=== PATIENT | female | born 1990 | race Caucasian/White ===

== ENCOUNTER 2018-06-28 20:23 | Emergency (ER) | payer BC, MEDICAID ==
[2014-06-27 16:39] VITALS: Wt 79.4 kg
[~2018-06-28 20:23] MED LIST: IBUP800T37 PO; LORITAB; PER PO; PNV11TAB
--- NOTE | 2018-06-28 20:28 | ER Report ---
History and Physical Time Seen By MD: 20:28 HPI/ROS CHIEF COMPLAINT: left elbow laceration HISTORY OF PRESENT ILLNESS: This is a 27 year old female. She was sitting on a glass coffee table, glass gave way and broke, fell with elbow into edge of glass, large laceration. Has normal range of motion with pain. Has some tingling in entire hand and wrist area. Allergies: Coded Allergies: No Known Allergies (Verified Allergy, Unknown, 06/28/18) Home Meds Active Scripts Cephalexin Monohydrate (CEPHALEXIN) 500 Mg Cap, 500 MG PO Q6H, #28 CAP 0 Refills Prov:JESUS BATES MD 06/28/18 Discontinued Reported Medications Oyc131/Iron Fumarate/Fa/Dss ( 19 TABLET) 1 Each Tablet 06/27/14 Discontinued Scripts Oxycodone/Acetaminophen (OXYCODONE/ACETAMINOPHEN 5MG/325 MG) 1 Tab Tab, 1-2 TAB PO Q4H PRN for PAIN, #30 TAB 0 Refills Prov:TOM CISSE MD 06/29/14 Ibuprofen (IBUPROFEN) 800 Mg Tab, 800 MG PO Q8H, #30 TAB 0 Refills Prov:TOM CISSE MD 06/29/14 Reviewed Nurses Notes: Yes Hx Smoking: Yes Smoking Status: Former Smoker Exposure to Second Hand Smoke?: Yes Hx Substance Use Disorder: No Hx Alcohol Use: No Constitutional Vital Sign - Last 24 Hours 06/28/18 06/28/18 20:27 22:05 Temp 98.1 Pulse 53 56 Resp 20 14 B/P (MAP) 99/50 95/59 (71) Pulse Ox 98 96 O2 Delivery Room Air Room Air l Intake and Output 06/28/18 06/28/18 06/29/18 15:00 23:00 07:00 Intake Total 100 ml Balance 100 ml Physical Exam General: Alert, mild distress due to injury and pain. Skin: about 7 cm laceration elbow, from olectranon, runs posteriorly/proximally and laterally. Into subcutaneous tissue. Partial tear into the triceps muscle where it inserts onto the olecranon. Does not seem to go into the joint itself. No vascular injury is noted. No obvious nerve injury as well. Musculoskeletal: Good passive and active range of motion, although with pain. Resisted flexion and extension of the elbow are normal. Good rotation of the forearm. Normal motor of the wrist, hand and fingers. Neuro: Paresthesias in hand, wrist and forearm, but no numbness. Cardiovascular: Normal radial pulses and capillary refill. Medical Decision Making EKG/Imaging Imaging ELBOW 3 VIEW LEFT HISTORY: elbow laceration COMPARISON: None FINDINGS: AP lateral and oblique views were obtained. The proximal radius is unremarkable. The proximal ulna is unremarkable. The distal humerus is unremarkable. There is gas present within the elbow joint capsule. IMPRESSION: Gas present within the joint space of the elbow. There is no evidence of acute bony abnormality. Report Dictated By: Sam Chester at 06/28/2018 9:02 PM ED Course/Re-evaluation Clinical Indication for ER IV: IV Access ED Course Large laceration going deep in elbow, but appears to miss the ulnar nerve area. Local numbing with 1% lidocaine and 0.5% bupivacaine to get a better look. No foreign material seen. IV start and Ancef 1g IV given. Imaging obtained, question of gas in joint. Discussed with Dr. Davis, who looked at the images. We discussed options, and decided that I would repair in the ER and have her see Dr. Davis tomorrow in the office for follow-up and further interventions as needed. Discussed doing a methylene blue joint injection, but did not think it would change our current plan for management. Procedure: Laceration Repair Verbal consent from patient after discussing repair options, risks and benefits. Wound cleaned extensively with Hibiclense and Saline, with copious irrigation. Anesthesia: Repeated local 1% lidocaine with epinephrine and 0.5% bupivacaine. Location: left elbow as noted.. Length: about 7 cm. Character: Deep into subcutaneous and partially into muscle tissue. No tendon injury was identified. Normal motor including resistance testing. Wound repair: 8 internal multi-layer 4-0 Vicryl, then interrupted 4-0 Ethilon on the exterior closure. The wound repair was complex and performed by myself. Wound care instructions discussed. Sutures need to be removed in 7-10 days. Tetanus booster given. Cephalexin 500mg four times a day for 7 days. Decision to Disposition Date: Jun 28, 2018 Decision to Disposition Time: 23:06 Depart Departure Latest Vital Signs Vital Signs Date Time Temp Pulse Resp B/P (MAP) Pulse Ox O2 Delivery O2 Flow Rate FiO2 06/28/18 22:05 56 14 95/59 (71) 96 Room Air 06/28/18 20:27 98.1 Impression: Primary Impression: Laceration of elbow Condition: Improved Disposition: HOME OR SELF-CARE New Scripts Cephalexin Monohydrate (CEPHALEXIN) 500 Mg Cap 500 MG PO Q6H, #28 CAP 0 Refills Prov: JESUS BATES MD 06/28/18 Patient Instructions: Laceration (ED) Additional Instructions: Wound Care: Leave the dressing in place until you see orthopedic surgery tomorrow. General wound care includes the following, wash the wound once a day with soap and water. Dry the wound and apply a small amount of antibiotic ointment with a clean dressing. If the dressing becomes wet or dirty, repeat cleaning and dressing as above. No soaking the wound; no swimming. Stitches need to be removed in 7 days. Pain Control: Use Tylenol or ibuprofen for pain. Using and ice pack can help reduce swelling. Antibiotic: Cephalexin 500mg 4 times a day for 7 days. Call [facility] in the morning, Dr. Davis plans to see you in the office for re-evaluation. Nothing to eat or drink after midnight tonight in case he will need to perform further repair or surgery. Problem Qualifiers Primary Impression: Laceration of elbow Encounter type: initial encounter Laterality: left Qualified Codes: S51.012A - Laceration without foreign body of left elbow, initial encounter JESUS BATES MD Jun 28, 2018 20:28
[2018-06-28] MEDS ORDERED: ceFAZolin(*) 1 GM VIAL 1 GM in NS(*) 0.9% 100 ML MINI-BAG 100 ML IV ONE (20:40)
[2018-06-28] MEDS ORDERED: DIPHTH/TETANUS/ACEL. PERTUSSIS IM ONLY ONE (20:40)
--- NOTE | 2018-06-28 21:08 | RADIOLOGY IMAGING REPORT ---
FACILITY: [facility] PATIENT NAME: Evelia Perdomo : 1990 MR: [id number] V: [id number] EXAM DATE: ORDERING PHYSICIAN: JESUS BATES TECHNOLOGIST: Location: [facility] Patient: Evelia Perdomo : 1990 Visit/Account:[id number] Date of Sevice: 06/28/2018 ELBOW 3 VIEW LEFT HISTORY: elbow laceration COMPARISON: None FINDINGS: AP lateral and oblique views were obtained. The proximal radius is unremarkable. The proxim al ulna is unremarkable. The distal humerus is unremarkable. There is gas present within the elbow deepak int capsule. IMPRESSION: Gas present within the joint space of the elbow. There is no evidence of acute bony abnormality. Report Dictated By: Sam Chester at 06/28/2018 9:02 PM Report E-Signed By: Sam Chester at 06/28/2018 9:04 PM WSN:[id number]
[2018-06-28] MEDS ORDERED: MORPHINE 2 MG/ML SYR IVP ONE (21:15)
[2018-06-28] MEDS ORDERED: ONDANSETRON 4 MG/2 ML VIAL IVP ONE (21:30)
[2018-06-28 22:05] VITALS: BP 95/59
[2018-06-28] MEDS ORDERED: IBUPROFEN 800 MG TAB PO ONE (23:05)
[2018-06-28] MEDS ORDERED: CEPHALEXIN MONO 250 MG CAP PO ONE (23:05)
[2018-06-28] MEDS ORDERED: CEPH500C24 PO (23:08)
== END 2018-06-28 23:25 | disposition home or self-care (01) ==
LOC: ER 21:02
DX: S51.012A Laceration without foreign body of left elbow, initial encounter (principal); W25.XXXA Contact with sharp glass, initial encounter
CPT/HCPCS: 13121; 73080; 90471; 90715; 96365; 96375; 99284; J0690; J2270; J2405